=== PATIENT | male | born 1960 | race Caucasian/White ===

== ENCOUNTER 2025-01-22 01:53 | Emergency (ER) | payer MEDICARE, BC, SELFPAY ==
--- NOTE | ~2025-01-22 | CT_ITS ---
EXAMINATION: CT abdomen pelvis wo con DATE: 01/22/2025 02:30 INDICATION: Right flank pain for 24 hours TECHNIQUE: Computed tomography (CT) of the abdomen and pelvis was performed without intravenous contrast. The dose-length product was 774.50 mGy-cm. Automated exposure control and iterative reconstruction technique were employed. COMPARISON: None. FINDINGS: Lung bases unremarkable. Heart size normal. Small hiatal hernia. The liver, spleen, pancreas, adrenal glands are unremarkable. Gallbladder is present. There are bilateral renal stones. There is a 6 mm right mid ureteral stone with mild hydronephrosis. Mild atherosclerosis of the aorta. No aneurysm. There bilateral hip arthroplasties. There are bladder stones. IMPRESSION: 1. Right mid ureteral stone measuring 6 mm with mild hydronephrosis. 2: Bilateral nephrolithiasis. Bladder stones. Reviewed, dictated and finalized at location [facility].
[2025-01-22 01:55] VITALS: BP 143/88; PULSE 76; RESP 20; TEMP 37.1; O2SAT 97
--- NOTE | 2025-01-22 02:01 | ED.ABDPAIN ---
HPI - Abdominal Pain General Chief Complaint: Abdominal Pain Stated Complaint: Abdominal Pain Time Seen by Provider: 01/22/25 02:01 Source: patient Mode of arrival: ambulatory Limitations: no limitations History of Present Illness HPI narrative: 64 years old white male came to the ED by private car complaining of right flank right lower quadrant pain sharp stabbing started 14 hours prior to arrival, denies aggravating or relieving factors. He denies any fever, chills, nausea, vomiting, diarrhea, constipation or urinary symptoms. History of kidney stone, hypertension, and HIV. Does smoke cigarettes, drinks occasionally, does not use drugs Related Data Home Medications ?Medication ?Instructions ?Recorded ?Confirmed ?Last Taken ?Type alprazolam 1 mg tablet 1 mg PO QID 01/22/25 Unknown History amlodipine 2.5 mg tablet 2.5 mg PO DAILY 01/22/25 Unknown History bupropion HCl 450 mg 24 hr tablet, 450 mg PO DAILY 01/22/25 Unknown History extended release desvenlafaxine 50 mg 25 mg PO DAILY 01/22/25 Unknown History tablet,extended release 24 hr gabapentin 600 mg tablet 1,200 mg PO TID 01/22/25 Unknown History lamotrigine 200 mg tablet 500 mg PO DAILY 01/22/25 Unknown History (Lamictal) triamterene 37.5 1 tablet PO QAM 01/22/25 Unknown History mg-hydrochlorothiazide 25 mg tablet Allergies Allergy/AdvReac Type Severity Reaction Status Date / Time No Known Allergies Allergy Verified 01/22/25 01:59 Review of Systems Review of Systems: All systems reviewed & are unremarkable except as noted in HPI and below Exam Narrative: General appearance: Well-developed, well-nourished Skin: Normal color Head: Normocephalic, nontraumatic Eyes: Clear conjunctiva ENT: Oropharynx normal, ears normal, nose normal Neck: Supple, nontender Chest and respiratory: Airway patent, no respiratory distress, no accessory muscle use Heart: Regular rate/rhythm Abdomen: Soft, tender right lower quadrant, no guarding or rebound, no organomegaly, quiet bowel sounds Vascular: Normal peripheral pulses, normal capillary refill. 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, no gross motor deficit Course Consultations Consultation #1: DR OROSCO, HOSPITALIST AT [facility] WHO ACCEPTED PATIENT TRANSFER Date: 01/22/25 Time: 06:13 Vital Signs Vital signs: Vital Signs Temperature 37.1 C 01/22/25 01:55 Pulse Rate 76 01/22/25 01:55 Respiratory Rate 20 01/22/25 01:55 Blood Pressure 143/88 H 01/22/25 01:55 Pulse Oximetry 97 01/22/25 01:55 Oxygen Delivery Room Air 01/22/25 01:55 Temperature 36.9 C 01/22/25 05:56 Pulse Rate 92 01/22/25 05:56 Respiratory Rate 16 01/22/25 05:56 Blood Pressure 145/96 H 01/22/25 05:56 Pulse Oximetry 97 01/22/25 05:56 Oxygen Delivery Room Air 01/22/25 05:56 MDM - Abdominal Pain MDM Narrative Medical decision making narrative: differential diagnosis include kidney stone, urinary tract infection, appendicitis, cholecystitis, constipation, diverticulitis Blood workup today includes CBC, CMP, lipase showed Urinalysis showed CT abdomen and pelvis without contrast showed 6 x 3 by mm calculus at the right mid ureter Transferred to [facility], /hospitalist Differential Diagnosis Differential diagnosis: Likely acute appendicitis, calculus of kidney, constipation and diverticulitis Medical Records Attestation: I reviewed the patient's medical records. Lab Data Attestation: I reviewed the patient's lab results. 01/22/25 02:20 01/22/25 02:20 Labs: Lab Results 01/22/25 Range/Units 02:20 WBC 7.9 (4.8-10.8) K/mm3 RBC 3.97 L (4.70-6.10) M/mm3 Hgb 13.5 L (14.0-18.0) g/dL Hct 40.0 (40.0-54.0) % MCV 100.8 (78.0-102.0) fL MCH 34.0 H (27.0-31.0) pg MCHC 33.8 (32-36) g/dL RDW 12.4 (11.6-14.4) % Plt Count 205 (150-420) K/mm3 MPV 10.8 (8.7-11.0) fl Immature Gran % (Auto) 0.3 H (0.0-0.0) % Neut % (Auto) 57.3 (50.0-70.0) % Lymph % (Auto) 32.5 (18.0-42.0) % [place] % (Auto) 7.7 (2.0-11.0) % Eos % (Auto) 1.9 (1.0-6.0) % Baso % (Auto) 0.3 (0.0-1.0) % Lymph # (Auto) 2.56 (1.10-4.50) K/mm3 [place] # (Auto) 0.61 (0.10-0.90) K/mm3 Eos # (Auto) 0.15 (0.02-0.50) K/mm3 Baso # (Auto) 0.02 (0.00-0.10) K/mm3 Abs Immat Gran (auto) 0.02 H (0.00-0.00) K/mm3 Absolute Neuts (auto) 4.52 (1.70-7.20) K/mm3 Absolute Nucleated RBC 0.00 (0.00-0.00) K/mm3 Nucleated RBC % 0.0 (0-0.0) % Sodium 139 (137-145) mmol/L Potassium 3.1 L (3.4-5.0) mmol/L Chloride 103 (98-107) mmol/L Carbon Dioxide 25 (22-30) mmol/L Anion Gap 11 (4-12) mmol/L BUN 25 H (9-20) mg/dL Creatinine 1.93 H (0.7-1.3) mg/dL Estim Creat Clear Calc 40 ml/min Estimated GFR 35 L (59 - ) Glucose 116 H (65-110) mg/dL Calculated Osmolality 293 (285-295) mOsm/kg Calcium 9.4 (8.4-10.2) mg/dL Total Bilirubin 0.4 (0.2-1.3) mg/dL AST 24 (17-59) U/L ALT 12 (6-50) U/L Alkaline Phosphatase 92 (38-126) U/L Total Protein 7.1 (6.3-8.2) g/dL Albumin 4.5 (3.5-5.1) g/dL Lipase 96 (23-300) U/L Imaging Data Radiologist's impression: mild right hydronephrosis and hydroureter secondary to a mid ureteral 6 x 3 mm calculus. Bilateral nonobstructing renal calculi are present. No hydronephrosis. Otherwise within normal limit Critical Care Time Critical Care Time Critical Care Time: No Discharge Plan Discharge Clinical Impression: Kidney stone on right side Patient Disposition: Home Condition: Improved Patient Language: Tamaz[place] Prescriptions: No Action alprazolam 1 mg tablet 1 mg PO QID gabapentin 600 mg tablet 1,200 mg PO TID bupropion HCl 450 mg tablet extended release 24 hr 450 mg PO DAILY triamterene-hydrochlorothiazid 37.5-25 mg tablet 1 tablet PO QAM amlodipine 2.5 mg tablet 2.5 mg PO DAILY desvenlafaxine 50 mg tablet extended release 24 hr 25 mg PO DAILY lamotrigine [Lamictal] 200 mg tablet 500 mg PO DAILY Follow-up/Referrals: UNKNOWN,DOCTOR [Primary Care Provider]
[2025-01-22] MEDS: ONDANSETRON INJ 4 MG/2 ML VIAL IV PUSH (02:12)
[2025-01-22] MEDS: TAMSULOSIN HCL 0.4 MG CAPSULE PO (02:14)
[2025-01-22] MEDS: HYDROmorphone HCL INJ (*CRX) 2 MG/ML VIAL 0.5 MG IV PUSH ×3 (02:14→06:04)
[2025-01-22] MEDS: SODIUM CHLORIDE 0.9% IV 1,000 ML 999 ML IV CONT ×2 (02:19→06:06)
[2025-01-22 02:25] LABS: Hematocrit 40.0 % (40.0-54.0); Hemoglobin 13.5 g/dL (14.0-18.0); Immature Granulocyte Percent A 0.3 % (0.0-0.0); Lymphocytes Absolute Auto 2.56 K/mm3 (1.10-4.50); Mean Corpuscular HGB Conc 33.8 g/dL (32-36); Mean Corpuscular Hemoglobin 34.0 pg (27.0-31.0); Mean Corpuscular Volume 100.8 fL (78.0-102.0); Nucleated Red Blood Cells Absolute Auto 0.00 K/mm3 (0.00-0.00); Nucleated Red Blood Cells Perc 0.0 % (0-0.0); Platelet Count Result 205 K/mm3 (150-420); Red Blood Count 3.97 M/mm3 (4.70-6.10); White Blood Count 7.9 K/mm3 (4.8-10.8)
[2025-01-22 02:34] LABS: Alanine Aminotransferase 12 U/L (6-50); Albumin Level 4.5 g/dL (3.5-5.1); Alkaline Phosphatase 92 U/L (38-126); Anion Gap 11 mmol/L (4-12); Aspartate Amino Transferase 24 U/L (17-59); Bilirubin,Total 0.4 mg/dL (0.2-1.3); Blood Urea Nitrogen 25 mg/dL (9-20); Calcium 9.4 mg/dL (8.4-10.2); Carbon Dioxide 25 mmol/L (22-30); Chloride 103 mmol/L (98-107); Estimated CRCL calculation 40 ml/min; Estimated Glomerular Filt Rate 35; Glucose 116 mg/dL (65-110); Lipase 96 U/L (23-300); Osmolality Calculated 293 mOsm/kg (285-295); Potassium 3.1 mmol/L (3.4-5.0); Sodium 139 mmol/L (137-145); Total Protein 7.1 g/dL (6.3-8.2)
[2025-01-22 03:55] VITALS: BP 128/85; PULSE 75; RESP 18; O2SAT 98
--- NOTE | 2025-01-22 03:55 | PC.NURSE ---
Pt resting, VSS, explained wait for CT results. Call waters at pt side.
--- NOTE | 2025-01-22 05:48 | PC.NURSE ---
Dr Nassar spoke w/ pt about CT results. Pt sitting on side of bed, c/o pain increasing again. Pt wants transfer to [place].
[2025-01-22 05:56] VITALS: BP 145/96; PULSE 92; RESP 16; TEMP 36.9; O2SAT 97
--- NOTE | 2025-01-22 06:08 | PC.NURSE ---
Pt given ice chips per request and ok per ERP. Pt resting and still hasn't urinated, pt attempted to urinate again. Awaiting call back from [facility].
--- NOTE | 2025-01-22 06:22 | PC.NURSE ---
Pt informed of acceptance to [facility] Awaiting call back for bed assignment. Pt resting w/ fluids running at this time.
[2025-01-22 07:04] VITALS: BP 140/85; PULSE 89; RESP 18; TEMP 36.9; O2SAT 97
== END 2025-01-22 07:30 | disposition short-term general hospital (02) ==
PROVIDERS: Emergency Provider Emergency Medicine
DX: N20.0 Calculus of kidney (principal); Z79.899 Other long term (current) drug therapy
CPT/HCPCS: 36415; 74176; 80053; 83690; 85025; 96361; 96374; 96375; 96376; 99284; A9270; J1171; J2405; J7030